=== PATIENT | male | born 2000 | race Hispanic/Latino ===

== ENCOUNTER 2021-10-21 18:46 | Emergency (ER) | payer SELFPAY ==
[2021-10-21 19:05] VITALS: BP 136/77; PULSE 107; RESP 16; TEMP 37.4; O2SAT 99
--- NOTE | 2021-10-21 19:15 | ED.NAVMDI ---
HPI - Nausea/Vomiting/Diarrhea General Chief complaint: Nausea/Vomiting/Diarrhea Stated complaint: Throwing Up Time Seen by Provider: 10/21/21 19:15 Source: patient Mode of arrival: ambulatory Limitations: no limitations History of Present Illness HPI Narrative: 21-year-old male presents with complaint of nausea, vomiting, fatigue, fever, body aches for 5 days. Reports that he has been working through his symptoms but today felt really ill and had to leave work early. Did vomit 2-3 times a day. Is able to keep down some water. Is taking pills from [employer] for his fever but does not know the name of them. All systems reviewed and negative except as noted above. Related Data Home Medications Medication Instructions Recorded Confirmed No Home Medications 10/21/21 10/21/21 Allergies Allergy/AdvReac Type Severity Reaction Status Date / Time No Known Allergies Allergy Verified 10/21/21 19:31 Review of Systems Review of Systems: CONSTITUTIONAL: Reports fever, chills, or sweats. EYES: Denies visual changes, redness, or discharge. ENT: Denies rhinorrhea, congestion, sore throat, or otalgia. CARDIOVASCULAR: Denies chest pain, palpitations, or edema. RESPIRATORY: Denies cough or dyspnea. GASTROINTESTINAL: Reports abdominal pain, nausea, vomiting. Denies diarrhea. GENITOURINARY: Denies dysuria or hematuria. SKIN: Denies rash or itching. MUSCULOSKELETAL: Denies back pain, joint pain, or myalgia. NEUROLOGIC: Reports headache. Denies numbness, or weakness. PSYCHIATRIC: Denies anxiety or depression. All other systems reviewed are negative, except as documented in HPI. PMFSH Comments At time of signature, agree with nursing past medical, surgical, social and family history. There is no relevant family history pertinent to the presenting complaint. Exam Narrative: GENERAL: This is a well-nourished, well-developed patient. Patient is ill-appearing but in no distress. HEAD: normocephalic, atraumatic. EYES: PERRL. Sclera clear/white. Vision is grossly intact. EARS: External ears normal, auditory canals clear and without drainage, TMs normal without perforation. Hearing grossly intact. NOSE: External nose normal with no obvious nasal discharge, nares without redness, no rhinorrhea. THROAT: Mucous membranes moist, posterior pharynx clear. NECK: Neck supple, non-tender without lymphadenopathy, masses or thyromegaly. CARDIOVASCULAR: Regular rate and rhythm without murmurs, gallops, or rubs. RESPIRATORY: Clear to auscultation. Breath sounds equal bilaterally. No wheezes, rales, or rhonchi. GASTROINTESTINAL: Abdomen soft, non-tender, nondistended. Bowel sounds are active. No hepato-splenomegaly, or palpable masses. No guarding. SKIN: warm, Dry, intact with no suspicious lesions or rash, good texture and turgor. NEURO: awake, alert, and oriented to person, place and time. There were no obvious focal neurologic abnormalities. EXTREMITIES: Normal range of motion to all extremities. Course Course Level of Care: Express Care Visit Vital Signs Vital signs: Vital Signs Temperature 37.4 C 10/21/21 19:05 Pulse Rate 107 H 10/21/21 19:05 Respiratory Rate 16 10/21/21 19:05 Blood Pressure 136/77 10/21/21 19:05 Pulse Oximetry 99 10/21/21 19:05 Temperature 37.4 C 10/21/21 19:05 Pulse Rate 107 H 10/21/21 19:05 Respiratory Rate 16 10/21/21 19:05 Blood Pressure 136/77 10/21/21 19:05 Pulse Oximetry 99 10/21/21 19:05 Reviewed. Patient treated with ibuprofen prior to discharge for his fever. MDM - Nausea/Vomiting/Diarrhea MDM Narrative Medical decision making narrative: Positive influenza A. Reports symptoms Fridays. Out of window for Tamiflu. Patient is aware of diagnosis, understands and agrees to treatment plan. Anticipatory guidance given. Patient agrees to follow-up as directed and is aware of reasons to seek care at the emergency department. Portions of this record may have been created with voice rec
[2021-10-21] MEDS: ONDANSETRON HCL ODT 4 MG TABLET SUBLINGUAL (19:33)
[2021-10-21] MEDS: IBUPROFEN 600 MG TABLET PO (19:33)
== END 2021-10-21 19:35 | disposition home or self-care (01) ==
PROVIDERS: Emergency Provider Nurse Practitioner Family
DX: J10.1 Influenza due to other identified influenza virus with other respiratory manifestations (principal)
CPT/HCPCS: 87804; 99213; A9270; G0463